=== PATIENT | female | born 2000 | race Caucasian/White ===

== ENCOUNTER 2022-01-25 03:12 | Emergency (ER) | payer MEDICAID ==
[~2022-01-25] VITALS: Ht 167.6 cm; Wt 99.8 kg
[2022-01-25] MEDS ORDERED: ONDANSETRON HCL/PF 4 MG/2 ML VIAL ONE (03:40)
--- NOTE | 2022-01-25 03:50 | NUR ---
PT BIBSELF C/O N/V X 5 DAYS S/P DRINKING OVER THE HOLIDAY WEEKEND. PT AAOX4 BREATHING EVENLY AND UNLABORED. PT STATES THAT SHE WAS SEEN AT [facility] AND "THEY DID NOTHING FOR ME". RAC 20G INITIATED. PT ATTACHED TO MONITOR AND POX. WILL CONTINUE TO MONITOR.
[2022-01-25] MEDS: ONDANSETRON HCL/PF 4 MG/2 ML VIAL IVP ONE (04:00)
[2022-01-25] MEDS: IV NS 0.9% 1,000 ML BAG IV ONE (04:00)
--- NOTE | 2022-01-25 04:03 | NUR ---
blood drawn and sent to lab
[2022-01-25 04:13] LABS: BASOPHILS % (AUTO) 0.3 % (0.0-2.0); HEMATOCRIT 36 % (33-45); HEMOGLOBIN 11.6 g/dL (11.5-14.8); LYMPHOCYTES # (AUTO) 0.9 K/uL (0.8-4.8); LYMPHOCYTES % (AUTO) 7.9 % (20.0-44.0); MEAN CORPUSCULAR HGB CONC 32 g/dl (31.0-36.0); MEAN CORPUSCULAR VOLUME 89 fL (82-100); MONOCYTES # (AUTO) 0.6 K/uL (0.1-1.30); MONOCYTES % (AUTO) 5.1 % (2.0-12.0); NEUTROPHILS # (AUTO) 9.8 K/uL (1.8-8.9); NEUTROPHILS % (AUTO) 86.7 % (43.0-81.0); PLATELET COUNT (AUTO) 271 K/uL (150-450); RED BLOOD CELL COUNT(AUTO) 4.04 MIL/uL (4.0-5.2); WHITE BLOOD COUNT (AUTO) 11.3 K/uL (4.3-11.0)
[2022-01-25 04:19] LABS: CALCIUM, SERUM 9.4 mg/dL (8.5-10.1); POTASSIUM 3.5 mmol/L (3.5-5.1)
[2022-01-25 04:34] LABS: ALBUMIN 4.1 g/dL (3.4-5.0); BILIRUBIN,DIRECT 0.1 mg/dL (0.0-0.2); BILIRUBIN,TOTAL 0.2 mg/dL (0.2-1.0); TOTAL PROTEIN, SERUM 7.9 g/dL (6.4-8.2)
[2022-01-25 05:22] LABS: BILIRUBIN,URINE NEGATIVE (NEGATIVE); COLOR,URINE YELLOW (YELLOW); LEUKOCYTE ESTERASE ,URINE SMALL (NEGATIVE); NITRITE, URINE NEGATIVE (NEGATIVE); PROTEIN,URINE TRACE mg/dl (NEGATIVE); UGLUCOSE NEGATIVE (NEGATIVE); UROBILINOGEN,URINE 0.2 EU/dL (0.2)
[2022-01-25] MEDS ORDERED: ONDA4TAB11 PO (05:22)
--- NOTE | 2022-01-25 05:26 | NUR ---
Patient discharged to home in stable condition. Written and verbal after care instructions given. Patient verbalizes understanding of instruction. IV removed. Catheter intact and site benign. Pressure and 4x4 applied to site. No bleeding noted. Pt ambulatory with a steady gait
[2022-01-25 05:32] VITALS: BP 135/74
[2022-01-25 05:50] LABS: BACTERIA,URINE Few /HPF (None Seen); SQUAMOUS EPITHELIAL CELL,UR Many /HPF (None Seen)
== END 2022-01-25 05:26 | disposition home or self-care (01) ==
LOC: ER 03:14
DX: R11.2 Nausea with vomiting, unspecified (principal)
CPT/HCPCS: 99283; 96374; 96361; 85025; 80048; 87086; 83690; 80076; 84703; 81001; 36415; J2405; J7030

== ENCOUNTER 2022-01-25 09:41 | Emergency (ER) | payer MEDICAID ==
[~2022-01-25] VITALS: Ht 170.2 cm; Wt 102.1 kg
[~2022-01-25 09:41] MED LIST: ONDA4TAB11 PO
--- NOTE | 2022-01-25 09:51 | NUR ---
To ER bed 13, EFRAIN [id number]"Abdominal Pain-Was seen here yesterday and this am for same Pain worse/Nausea/vomiting", aaox3, breathing even and non labored, connected to monitor, provided blanket for comfort
--- NOTE | 2022-01-25 09:53 | NUR ---
urine sample collected and sent to lab
[2022-01-25] MEDS ORDERED: ONDANSETRON HCL/PF 4 MG/2 ML VIAL ONE (10:23)
[2022-01-25] MEDS ORDERED: KETOROLAC TROMETHAMINE INJ 30 MG/ML VIAL ONE (10:23)
[2022-01-25] MEDS ORDERED: PANTOPRAZOLE 40 MG VIAL ONE (10:24)
[2022-01-25] MEDS ORDERED: HALOPERIDOL LACTATE INJ 5 MG/ML VIAL ONE (10:24)
[2022-01-25] MEDS: PANTOPRAZOLE 40 MG VIAL IV ONE (10:25)
[2022-01-25] MEDS: KETOROLAC TROMETHAMINE INJ 30 MG/ML VIAL IV ONE (10:26)
[2022-01-25] MEDS: ONDANSETRON HCL/PF 4 MG/2 ML VIAL IVP ONE (10:27)
[2022-01-25] MEDS: HALOPERIDOL LACTATE INJ 5 MG/ML VIAL IM ONE (10:27)
[2022-01-25 10:35] LABS: BILIRUBIN,URINE SMALL (NEGATIVE); COLOR,URINE YELLOW (YELLOW); LEUKOCYTE ESTERASE ,URINE MODERATE (NEGATIVE); NITRITE, URINE NEGATIVE (NEGATIVE); PROTEIN,URINE 30 mg/dl (NEGATIVE); UGLUCOSE NEGATIVE (NEGATIVE); UROBILINOGEN,URINE 0.2 EU/dL (0.2)
[2022-01-25 10:54] LABS: BILIRUBIN,DIRECT 0.1 mg/dL (0.0-0.2); BILIRUBIN,TOTAL 0.5 mg/dL (0.2-1.0); CREATININE 0.9 mg/dL (0.6-1.3); POTASSIUM 3.3 mmol/L (3.5-5.1); TOTAL PROTEIN, SERUM 7.9 g/dL (6.4-8.2)
[2022-01-25 11:10] LABS: BASOPHILS % (AUTO) 0.3 % (0.0-2.0); HEMATOCRIT 34 % (33-45); HEMOGLOBIN 11.2 g/dL (11.5-14.8); LYMPHOCYTES # (AUTO) 1.4 K/uL (0.8-4.8); LYMPHOCYTES % (AUTO) 11.8 % (20.0-44.0); MEAN CORPUSCULAR HGB CONC 33 g/dl (31.0-36.0); MEAN CORPUSCULAR VOLUME 89 fL (82-100); MONOCYTES % (AUTO) 8.8 % (2.0-12.0); NEUTROPHILS # (AUTO) 9.2 K/uL (1.8-8.9); NEUTROPHILS % (AUTO) 79.1 % (43.0-81.0); PLATELET COUNT (AUTO) 252 K/uL (150-450); RED BLOOD CELL COUNT(AUTO) 3.87 MIL/uL (4.0-5.2); WHITE BLOOD COUNT (AUTO) 11.6 K/uL (4.3-11.0)
--- NOTE | 2022-01-25 11:23 | NUR ---
Patient does not wish to proceed with medical care recommended by Dr. Pinon. Patient given information related to possible complications, up to and including , which could occur as a result of leaving the hospital at this time. Patient verbalizes understanding of risks involved due to leaving against medical advice. Patient has signed AMA form.
[2022-01-25 11:24] LABS: CALCIUM, SERUM 9.3 mg/dL (8.5-10.1)
[2022-01-25 11:37] VITALS: BP 138/84
[2022-01-25 12:27] LABS: BACTERIA,URINE Few /HPF (None Seen); SQUAMOUS EPITHELIAL CELL,UR Many /HPF (None Seen)
[2022-01-25 21:39] LABS: LYMPHOCYTES % (MANUAL) 13 % (16-48); MONOCYTES % (MANUAL) 13 % (0-11.0); NEUTROPHILS % (MANUAL) 74 (42-76)
== END 2022-01-25 11:37 | disposition left against medical advice (07) ==
LOC: ER 09:45
DX: R11.2 Nausea with vomiting, unspecified (principal); R10.9 Unspecified abdominal pain; I10 Essential (primary) hypertension
CPT/HCPCS: 99284; 96374; 96375; 85025; 80048; 87086; 83690; 80076; 84703; 36415; 80307; 81001; 96372; 85007; J1630; J1885; J2405; C9113

== ENCOUNTER 2022-01-26 23:37 | Emergency (ER) | payer MEDICAID ==
[~2022-01-26] VITALS: Ht 167.6 cm; Wt 99.8 kg
[2022-01-26 23:54] VITALS: BP 126/83
[2022-01-27] MEDS ORDERED: ONDA4TAB5 PO (01:07)
[2022-01-27] MEDS ORDERED: PANT40TA2 PO (01:07)
--- NOTE | 2022-01-27 01:09 | NUR ---
Patient discharged to home in stable condition. Written and verbal after care instructions given. Patient verbalizes understanding of instruction. Pt ambulatory with a steady gait
== END 2022-01-27 01:11 | disposition home or self-care (01) ==
LOC: ER 23:45
DX: G89.29 Other chronic pain (principal); R10.13 Epigastric pain; R11.2 Nausea with vomiting, unspecified; I10 Essential (primary) hypertension; Z76.5 Malingerer [conscious simulation]; Z79.899 Other long term (current) drug therapy